=== PATIENT | female | born 1940 | race Caucasian/White ===

== ENCOUNTER 2016-10-25 15:05 | Emergency (ER) | payer MEDICARE, OTHER | END 2016-10-25 16:36 | disposition home or self-care (01) | LOC: FER 15:05 | DX: M54.10 Radiculopathy, site unspecified (principal); E03.9 Hypothyroidism, unspecified; Z98.890 Other specified postprocedural states; Z79.899 Other long term (current) drug therapy | CPT/HCPCS: 99283 ==

== ENCOUNTER 2016-10-26 00:44 | Emergency (ER) | payer MEDICARE, OTHER | END 2016-10-26 03:40 | disposition home or self-care (01) | LOC: FER 00:44 | DX: M54.12 Radiculopathy, cervical region (principal); E03.9 Hypothyroidism, unspecified; Z79.899 Other long term (current) drug therapy | CPT/HCPCS: 70450; 72125 ==